=== PATIENT | female | born 1935 | race Caucasian/White ===

== ENCOUNTER 2019-04-21 15:43 | Inpatient (IN) | payer OTHER, MEDICARE ==
[~2019-04-21] VITALS: Ht 162.6 cm; Wt 49.9 kg
[2019-04-21 15:43] VITALS: BP_SYST 129
[2019-04-21] MEDS ORDERED: MORPHINE 2 MG/ML INJ. SYRINGE IVP ONE (16:30)
[2019-04-21 16:55] LABS: BASOPHILS % (AUTO) 0.2 % (0.0-2.0); HEMATOCRIT 40.9 % (36-48); HEMOGLOBIN 13.5 g/dL (12.0-16.0); MEAN CORPUSCULAR HEMOGLOBIN 27 pg (27-31); MEAN CORPUSCULAR HGB CONC 33 % (32-36); MEAN CORPUSCULAR VOLUME 81 fL (79.0-98.0); MONOCYTES # (AUTO) 1.6 K/uL (0.0-1.0); MONOCYTES % (AUTO) 15.1 % (1.7-9.3); NEUTROPHILS # (AUTO) 7.8 K/uL (1.8-7.7); NEUTROPHILS % (AUTO) 74.7 % (40.0-70.0); PLATELET COUNT (AUTO) 228 K/uL (130-430); RED BLOOD CELL COUNT(AUTO) 5.06 MIL/uL (4.2-6.2); RED CELL DISTRIBUTION WIDTH 14.4 % (9.0-15.0); WHITE BLOOD COUNT (AUTO) 10.4 K/uL (4.8-10.8)
[2019-04-21 17:04] LABS: ANION GAP 8 (5-15); CALCIUM 9.6 mg/dL (8.4-11.0); CHLORIDE 101 mmol/L (98-107); CREATININE 0.81 mg/dL (0.55-1.30); GLUCOSE 104 mg/dL (70-99); POTASSIUM 3.5 mmol/L (3.5-5.1); SODIUM SERUM 135 mmol/L (136-145); UREA NITROGEN, BLOOD 27 mg/dL (8-21)
[2019-04-21 17:09] LABS: ALANINE AMINOTRANSFERASE 22 U/L (12-78); ALBUMIN 3.4 g/dL (3.4-4.8); ASPARTATE AMINOTRANSFERASE 21 U/L (10-37)
[2019-04-21] MEDS ORDERED: ESCI20TA PO (17:31)
[2019-04-21] MEDS ORDERED: LISI-600 PO (17:31)
[2019-04-21] MEDS ORDERED: DONE10TA44 PO (17:31)
[2019-04-21] MEDS ORDERED: ASPI-1153 PO (17:31)
[2019-04-21 17:39] LABS: CKMB RELATIVE INDEX 1.3 (0.0-2.9); CREATINE KINASE MB 4.3 ng/mL (0-3.6)
[2019-04-21] MEDS ORDERED: NACL 0.9% 1,000 ML IV ONE (19:30)
[2019-04-21] MEDS ORDERED: LORazepam 2 MG/ML VIAL IVP ONE (19:30)
[2019-04-21] MEDS ORDERED: PIPERACILLIN/TAZO 3.375 GM in NS 50 ML IV ONE (19:30)
[2019-04-21] MEDS ORDERED: LORazepam 2 MG/ML VIAL (FOR ER USE) IVP ONE (19:45)
[2019-04-21 19:47] LABS: BILIRUBIN,URINE NEGATIVE (NEGATIVE); BLOOD, URINE 3+ (NEGATIVE); CLARITY/URINE SL CLOUDY (CLEAR); COLOR,URINE YELLOW (YELLOW); GLUCOSE,URINE NEGATIVE (NEGATIVE); KETONES,URINE TRACE (NEGATIVE); LEUKOCYTE ESTERASE ,URINE TRACE (NEGATIVE); NITRITE, URINE POSITIVE (NEGATIVE); PROTEIN URINE TRACE (NEGATIVE)
[2019-04-21] MEDS ORDERED: PIPERACILLIN/TAZOBACTAM 3.375 GM/VIAL (ZOSYN) IV ONE (19:49)
[2019-04-21 19:56] LABS: BACTERIA,URINE MANY /HPF (None Seen)
[2019-04-21 19:57] LABS: MUCUS,URINE None Seen /LPF (None Seen)
[2019-04-21] MEDS ORDERED: ONDANSETRON HCL 4 MG/2 ML VIAL IVP PRN (21:00)
[2019-04-21] MEDS: DONEPEZIL HCL 5 MG TABLET (ARICEPT) PO SCH (21:00)
[2019-04-21 21:10] VITALS: BP_SYST 154
[2019-04-21] MEDS: D5NS 1,000 ML IV SCH (21:43)
[2019-04-21] MEDS: cefTRIAXone 1 GM IVPB PREMIX 50 ML IV SCH (21:46)
[2019-04-21] MEDS ORDERED: cefTRIAXone 1 GM IVPB PREMIX 50 ML IV ONE (21:52)
[2019-04-22 00:30] VITALS: BP_SYST 154
[2019-04-22] MEDS: MORPHINE 2 MG/ML INJ. SYRINGE IVP PRN ×2 (02:18→13:50)
[2019-04-22 08:09] VITALS: BP_SYST 170
[2019-04-22] MEDS: CITALOPRAM HYDROBROMIDE 20 MG TABLET PO SCH (08:50)
[2019-04-22] MEDS: D5NS 1,000 ML IV SCH (08:50)
[2019-04-22] MEDS: ASPIRIN 81 MG TABLET(ECOTRIN) PO SCH (08:51)
[2019-04-22] MEDS: LISINOPRIL 20 MG TABLET PO SCH (08:51)
[2019-04-22] MEDS ORDERED: ESCITALOPRAM OXALATE 10 MG TABLET PO SCH (09:00)
[2019-04-22] MEDS: NACL 0.9% 1,000 ML IV SCH (14:36)
[2019-04-22 15:02] VITALS: BP_SYST 152
[2019-04-22] MEDS ORDERED: HALOPERIDOL LACTATE 5 MG/ML VIAL IM PRN (15:45)
[2019-04-22] MEDS ORDERED: HALOPERIDOL LACTATE 5 MG/ML VIAL IVP PRN (15:45)
[2019-04-22 17:28] VITALS: BP_SYST 155
[2019-04-22 20:00] VITALS: BP_SYST 152
[2019-04-22] MEDS: DONEPEZIL HCL 5 MG TABLET (ARICEPT) PO SCH (21:54)
[2019-04-22] MEDS: cefTRIAXone 1 GM IVPB PREMIX 50 ML IV SCH (22:22)
[2019-04-22] MEDS ORDERED: cefTRIAXone 1 GM IVPB PREMIX 50 ML IV ONE (22:29)
[2019-04-23] VITALS (12 sets, daily range): BP systolic 134–181
[2019-04-23 05:38] LABS: ANION GAP 9 (5-15); CHLORIDE 106 mmol/L (98-107); CREATININE 0.56 mg/dL (0.55-1.30); GLUCOSE 124 mg/dL (70-99); POTASSIUM 3.3 mmol/L (3.5-5.1); SODIUM SERUM 143 mmol/L (136-145); UREA NITROGEN, BLOOD 14 mg/dL (8-21)
[2019-04-23] MEDS ORDERED: cloNIDine HCL 0.1 MG TABLET PO ONE (07:30)
[2019-04-23] MEDS ORDERED: POTASSIUM CHLORIDE 20 MEQ TAB.PRT.SR PO ONE (08:15)
[2019-04-23] MEDS: ASPIRIN 81 MG TABLET(ECOTRIN) PO SCH (08:36)
[2019-04-23] MEDS: LISINOPRIL 20 MG TABLET PO SCH (08:37)
[2019-04-23] MEDS: CITALOPRAM HYDROBROMIDE 20 MG TABLET PO SCH (08:37)
[2019-04-23] MEDS: NACL 0.9% 1,000 ML IV SCH (08:37)
[2019-04-23] MEDS: ENALAPRILAT DIHYDRATE 1.25 MG/ML VIAL IVP PRN ×2 (11:39→19:59)
[2019-04-23] MEDS: hydrALAZINE HCL 20 MG/ML VIAL IVP PRN ×2 (15:57→23:35)
[2019-04-23] MEDS: DONEPEZIL HCL 5 MG TABLET (ARICEPT) PO SCH (21:22)
[2019-04-23] MEDS: cefTRIAXone 1 GM IVPB PREMIX 50 ML IV SCH (21:22)
[2019-04-24] VITALS (12 sets, daily range): BP systolic 127–179
[2019-04-24] MEDS: ENALAPRILAT DIHYDRATE 1.25 MG/ML VIAL IVP PRN ×2 (04:20→11:40)
[2019-04-24] MEDS: ACETAMINOPHEN 325 MG TABLET PO PRN (04:21)
[2019-04-24] MEDS: hydrALAZINE HCL 20 MG/ML VIAL IVP PRN ×2 (06:14→14:25)
[2019-04-24] MEDS: ASPIRIN 81 MG TABLET(ECOTRIN) PO SCH (08:38)
[2019-04-24] MEDS: CITALOPRAM HYDROBROMIDE 20 MG TABLET PO SCH (08:38)
[2019-04-24] MEDS: LISINOPRIL 20 MG TABLET PO SCH (09:57)
[2019-04-24] MEDS: hydrALAZINE HCL 25 MG TABLET PO SCH ×2 (17:15→21:00)
[2019-04-24] MEDS ORDERED: hydrALAZINE HCL 25 MG TABLET ONE (18:02)
[2019-04-24] MEDS: DONEPEZIL HCL 5 MG TABLET (ARICEPT) PO SCH (20:18)
[2019-04-24] MEDS: cefTRIAXone 1 GM IVPB PREMIX 50 ML IV SCH (20:58)
[2019-04-24] MEDS ORDERED: LORazepam 2 MG/ML VIAL ONE (21:46)
[2019-04-24] MEDS ORDERED: LORazepam 2 MG/ML VIAL IVP ONE (22:00)
[2019-04-25] MEDS: hydrALAZINE HCL 20 MG/ML VIAL IVP PRN (00:33)
[2019-04-25 01:55] VITALS: BP_SYST 160
[2019-04-25 06:05] VITALS: BP_SYST 165
[2019-04-25] MEDS: ENALAPRILAT DIHYDRATE 1.25 MG/ML VIAL IVP PRN (06:17)
[2019-04-25 07:50] VITALS: BP_SYST 149
[2019-04-25] MEDS ORDERED: LORazepam 2 MG/ML VIAL IVP ONE (09:00)
[2019-04-25] MEDS: CITALOPRAM HYDROBROMIDE 20 MG TABLET PO SCH (09:00)
[2019-04-25] MEDS: ASPIRIN 81 MG TABLET(ECOTRIN) PO SCH (09:01)
[2019-04-25] MEDS: LISINOPRIL 20 MG TABLET PO SCH (09:02)
[2019-04-25] MEDS: hydrALAZINE HCL 25 MG TABLET PO SCH ×4 (09:22→20:48)
[2019-04-25 12:00] VITALS: BP_SYST 154
[2019-04-25 14:19] LABS: BASOPHILS % (AUTO) 0.3 % (0.0-2.0); EOSINOPHILS % (AUTO) 0.1 % (0.0-4.0); HEMATOCRIT 40.1 % (36-48); HEMOGLOBIN 13.2 g/dL (12.0-16.0); LYMPHOCYTES # (AUTO) 0.9 K/uL (1.0-5.5); LYMPHOCYTES % (AUTO) 9.5 % (20.5-51.5); MEAN CORPUSCULAR HEMOGLOBIN 26 pg (27-31); MEAN CORPUSCULAR HGB CONC 33 % (32-36); MEAN CORPUSCULAR VOLUME 80 fL (79.0-98.0); MONOCYTES % (AUTO) 10.4 % (1.7-9.3); NEUTROPHILS # (AUTO) 7.6 K/uL (1.8-7.7); NEUTROPHILS % (AUTO) 79.7 % (40.0-70.0); PLATELET COUNT (AUTO) 322 K/uL (130-430); RED BLOOD CELL COUNT(AUTO) 5.01 MIL/uL (4.2-6.2); RED CELL DISTRIBUTION WIDTH 14.5 % (9.0-15.0); WHITE BLOOD COUNT (AUTO) 9.5 K/uL (4.8-10.8)
[2019-04-25 14:24] LABS: ANION GAP 7 (5-15); CALCIUM 8.7 mg/dL (8.4-11.0); CHLORIDE 98 mmol/L (98-107); CREATININE 0.51 mg/dL (0.55-1.30); GLUCOSE 98 mg/dL (70-99); POTASSIUM 3.4 mmol/L (3.5-5.1); SODIUM SERUM 133 mmol/L (136-145); UREA NITROGEN, BLOOD 20 mg/dL (8-21)
[2019-04-25 16:00] VITALS: BP_SYST 144
[2019-04-25] MEDS ORDERED: QUEtiapine FUMARATE 25 MG TABLET PO SCH (18:00)
[2019-04-25 20:00] VITALS: BP_SYST 120
[2019-04-25] MEDS: DONEPEZIL HCL 5 MG TABLET (ARICEPT) PO SCH (20:47)
[2019-04-25] MEDS: cefTRIAXone 1 GM IVPB PREMIX 50 ML IV SCH (20:47)
[2019-04-26 00:49] VITALS: BP_SYST 96
[2019-04-26] MEDS: ACETAMINOPHEN 325 MG TABLET PO PRN ×2 (04:44→09:41)
[2019-04-26] MEDS: CITALOPRAM HYDROBROMIDE 20 MG TABLET PO SCH (08:26)
[2019-04-26] MEDS: LISINOPRIL 20 MG TABLET PO SCH (08:26)
[2019-04-26] MEDS: ASPIRIN 81 MG TABLET(ECOTRIN) PO SCH (08:26)
[2019-04-26] MEDS: hydrALAZINE HCL 25 MG TABLET PO SCH ×2 (08:27→13:00)
[2019-04-26 08:31] VITALS: BP_SYST 150
[2019-04-26] MEDS ORDERED: LORazepam 1 MG TABLET PO PRN (10:15)
[2019-04-26 11:16] VITALS: BP_SYST 119
[2019-04-26 13:27] VITALS: BP_SYST 118
== END 2019-04-26 15:04 | DRG 689 ==
LOC: SED 15:43 → SMU 20:55
PROVIDERS: ADMIT Internal Medicine Hospice and Palliative Medicine; ATTEND Internal Medicine Hospice and Palliative Medicine
DX: N39.0 Urinary tract infection, site not specified (principal); G93.41 Metabolic encephalopathy; F41.9 Anxiety disorder, unspecified; E11.9 Type 2 diabetes mellitus without complications; I10 Essential (primary) hypertension; G30.9 Alzheimer's disease, unspecified; F02.80 Dementia in other diseases classified elsewhere, unspecified severity, without behavioral disturbance, psychotic disturbance, mood disturbance, and anxiety; E87.6 Hypokalemia; B96.20 Unspecified Escherichia coli [E. coli] as the cause of diseases classified elsewhere; Z86.718 Personal history of other venous thrombosis and embolism; Z90.49 Acquired absence of other specified parts of digestive tract; Z79.899 Other long term (current) drug therapy; Z79.82 Long term (current) use of aspirin
CPT/HCPCS: 36415; 70450-TC; 73560-TC; 73590-TC; 80048; 80053; 81000-TC; 82550-TC; 82553-TC; 83605; 85025; 87040-TC; 87086; 87186-TC; 92610-GN; 93971; 96365; 96375; 97110-GP; 97530-GP; 99285; J0360; J0696; J1630; J2060; J2270; J2543; J7030; J7042